=== PATIENT | male | born 1975 | race Caucasian/White ===

== ENCOUNTER 2025-01-14 19:43 | Emergency (ER) | payer BC ==
[~2025-01-14] VITALS: Ht 180.3 cm; Wt 112.0 kg
[2025-01-14] MEDS ORDERED: oxyCODONE 10MG/APAP 325 MG 1 COMBO TAB PO ONE (20:20)
[2025-01-14 20:52] LABS: BASO% 0.2 % (0-3); EOS% 1.3 % (0-8); HEMATOCRIT 45.5 % (39.0-50.0); IMMATURE GRANULOCYTES 0.2 % (0.0-5.0); LYMPH% 11.7 % (15-41); MEAN CELL VOLUME 91.7 fL CALC (80.0-100.0); MEAN CORPUSCULAR HGB 30.2 pG CALC (26.0-32.0); MONO% 5.8 % (2-13); NEUT# 13.32 thou/uL (1.82-7.42); NEUT% 80.8 % (42-76); RED BLOOD COUNT 4.96 mill/uL (4.70-6.10); RED CELL DISTRI WIDTH 12.7 % (11.5-15.5)
[2025-01-14 21:03] LABS: ALBUMIN 4.5 g/dL (3.2-5.0); BILIRUBIN, TOTAL 0.7 mg/dL (0.2-1.3); POTASSIUM 4.3 mmol/l (3.5-5.1); TOTAL PROTEIN 7.2 g/dL (6.3-8.2)
[2025-01-14] MEDS ORDERED: PERCOCET1 TA4 PO (22:40)
[2025-01-14] MEDS ORDERED: AMOX/K CLAV875 M1 PO (22:40)
[2025-01-14] MEDS ORDERED: METHOCARBAMOL500 MG PO (22:40)
[2025-01-14 22:45] LABS: URINE BILIRUBIN - DIPSTICK Negative (NEGATIVE); URINE BLOOD DIPSTICK Trace-intact (NEGATIVE); URINE CLARITY Clear; URINE GLUCOSE - DIPSTICK Negative (NEGATIVE); URINE KETONE Negative (NEGATIVE); URINE LEUK ESTERASE Negative (Negative); URINE NITRITE - DIPSTICK Negative (Negative); URINE PH 5.5 (4.5-8.0); URINE PROTEIN - DIPSTICK 30 mg/dL (NEG-TRACE); URINE UROBILINOGEN - DIPSTICK 0.2 E.U./dL (0.2)
[2025-01-14 22:46] LABS: URINE COLOR Yellow
[2025-01-14 22:54] LABS: URINE HYALINE CAST MODERATE lpf (NONE-RARE); URINE MUCUS MODERATE hpf (NONE-FEW); URINE WBC 0-2 WBC/hpf (0-5)
[2025-01-14 23:15] VITALS: BP 135/78
[2025-01-14] MEDS ORDERED: BACITRACIN ZINC 0.9 GM/PAK TOP ONE (23:15)
== END 2025-01-14 23:15 | disposition home or self-care (01) | DRG 90 ==
LOC: ED 19:43
PROVIDERS: Emergency Medicine
DX: S06.0XAA Concussion with loss of consciousness status unknown, initial encounter (principal); S50.01XA Contusion of right elbow, initial encounter; S50.02XA Contusion of left elbow, initial encounter; S40.812A Abrasion of left upper arm, initial encounter; S30.811A Abrasion of abdominal wall, initial encounter; J32.0 Chronic maxillary sinusitis; I10 Essential (primary) hypertension; V86.59XA Driver of other special all-terrain or other off-road motor vehicle injured in nontraffic accident, initial encounter; Z88.2 Allergy status to sulfonamides